=== PATIENT | male | born 1990 | race Hispanic/Latino ===

== ENCOUNTER 2016-09-06 14:21 | Inpatient (IN) | payer MEDICAID, OTHER ==
[~2016-09-06] VITALS: Ht 165.1 cm; Wt 70.0 kg
[2016-09-06 17:40] VITALS: BP 147/103; PULSE 76; RESP 16
--- NOTE | 2016-09-06 18:41 | NUR ---
Nursing Admission Note- Pt arrived to facility via stretcher and EMS staff at 1725. Pt signed all intake paper work. Pt is admitted on a voluntary basis with depression, anger, and thoughts of hurting others. On admission pt is A &Ox3 and appears well kept with flat affect, cooperative to treatment and appears to have good insight to his current mental health . Pt denies any Hx of treatment and denies ever being prescribed any psych meds. Pt stated he has been dealing with depression and having thoughts of harming others since he was 16 yrs old. Pt stated he attempted to seek a counselor in but was not willing to be honest in his therapy sessions and quickly stopped. Pt rated anxiety 3/10, depression 3/10, denied SI and rated HI 1/10 and denied hallucinations. When asked about the thoughts of harming others pt stated" I will get very angry and have thoughts of harming as many people as I can before anyone can take me down". Stated triggers are stress and "rude people". Pt stated he is having increased stress r/t being homeless and his current living situation at the [facility] and states" Im worried if I don't get help Im going to act on my thoughts and end up in penitentiary". Pt stated he was open to taking medications and stated he was more excited to be seeking tx at [facility] than he was apprehensive about being here. Pt denied any medical issues or concerns and stated a Hx of asthma but hasn't used an inhaler in years. Pt appears to have limited support systems and states limited contact with his family because"they stress me out more".
[2016-09-06] MEDS ORDERED: Alum-Mag Hydrox-Simeth 30 mL Suspension PO PRN (19:35)
[2016-09-06] MEDS ORDERED: Magnesium Hydroxide 10 mL Oral Concentration PO PRN (19:35)
[2016-09-06] MEDS ORDERED: Benzocaine-Menthol Lozenge 2/Pkg PO PRN (19:35)
--- NOTE | 2016-09-06 19:47 | NUR ---
Observations 0900 to 0 Pt arrived on the unit at 1725 on stretcher with EMT and security. Pt completed admission process and signed all admission paperwork. Pt was oriented to the unit, shown to room 226 and then came out to dining area to eat dinner. Pt ate 100% of his dinner. Pt affect and mood was calm, friendly and content. Pt speech and eye contact was good. Pt has been polite, pleasant and cooperative when approached by this senior underwriter. Pt took a shower and washed a load of clothes. Pt was observed every 15 minutes throughout the shift as ordered.
[2016-09-06] MEDS: LORazepam 1 mg Tablet PO PRN (20:33)
--- NOTE | 2016-09-06 23:20 | NUR ---
Nursing Note Luz- Pt spent luz in milieu socializing with peer, ate dinner and took PRN ambien 5mg for sleep and lorazepam 1mg for anxiety. Pt appears to be adjusting well to unit and has been cooperative and polite with staff. Q15 min safety checks done per protocol WC sleep, behavior, safety
--- NOTE | 2016-09-07 06:43 | NUR ---
Nursing Noc 11-7 s/o- has appeared to sleep after 0000 during q 15 minute assessments. a- no apparent distress. p- monitor behavior/emotional state, quality, times and amount of sleep, use and effect of medication.
[2016-09-07 10:34] VITALS: BP 123/90; PULSE 80; RESP 16
--- NOTE | 2016-09-07 14:28 | NUR ---
Pt AAOx3, pleasant, calm and cooperative, visible in common area reading after breakfast, attended and participated in groups, limited interaction with peers, wore sun glasses during the shift due to bright sunlight, , pt denies anxiety, denies depressive symptoms and denies A/VH. Does endorse having chronic underlying anger since childhood which is easily triggered. He reported he brought himself to the ED for active thoughts of harming others. Pt denies current thoughts to harm others since being on the on the unit, agrees to remain safe while in the hospital and notify staff if thoughts surface. During conversation pt stated that he has difficulty with social relationships and peterson by creating a "finely tailored human skin" that he hides behind. He explained this is a professional image he assumes by wearing business attire, ties etc. It prevents him from reacting negatively to those who offend him and acts as a control for managing his emotions. " My behavior has to match my image when my skin is on". He reports it also allows him to get his needs met. "People are more willing to give you things and do things for you if you appear respectable. " . Pt has required no prn medications, denies pain, no medical issues reported or observed.
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
--- NOTE | 2016-09-08 06:47 | NUR ---
Sleep Adequate sleep through the night with no noted distress or awakening per protocol checks. Total sleep over 9.5 hours.
[2016-09-08 15:31] VITALS: BP 135/72; PULSE 90
--- NOTE | 2016-09-08 17:51 | NUR ---
Day Shift 7a-7p Pt pleasant, calm and cooperative, fluctuated between common and bed area. Socially awkward, difficulty making social connections and wore his sun glasses all day. Pt see engage in solitary activities, little spontaneous conversation but responded when spoken to. Mood detached, affect constricted. Pt denies intrusive thoughts to harm others, reported his anger has not been triggered today and he has felt safe. Pt denies depressive symptoms, denies SI, HI plan or intent and denies A/VH. Pt started on Prozac today, compliant with medication, med education provided, no prns needed, pt denies pain, no medical issues reported or observed.
--- NOTE | 2016-09-08 18:45 | NUR ---
[facility] Day Shift Pt maintained behavioral control throughout the shift. Pt affect appears bright. Pt spends most of the shift reading/resting in his room, or reading/writing in the dining room. Pt is not overly social with staff and peers when active on the unit, but is pleasant and appropriate with staff and peers when engaged. Pt occasionally appears superficially friendly with staff and peers during interactions. Pt attended community meeting in the AM and participated very lightly in group activities throughout the shift. Pt attended all meals and ate approx 100% of all meals.
--- NOTE | 2016-09-08 19:52 | PCM.PNPSY ---
Subjective Date of Service Sep 08, 2016 Subjective The patient initially reported difficulty using the CBT worksheet as he thought all items had to be serious. He also thought there had to be a physical outcome to the events. The patient was able to complete the worksheets but objectified individuals as "meat." We discussed the need to de-objectify individuals and treat them more as people than objects. He agreed and was more enthusiastic about trying. He reported no side effects from fluoxetine. Sleep: 9-1/2 hours. Appetite: Good Suicidal and homicidal ideation: Denies Auditory hallucinations: Denies Visual hallucinations: Denies Other Psychotic Symptoms: Denies Anxiety: Moderate Depression: Still with existential dilemma Current Medications Current Medications Fluoxetine HCl 10 mg ONCE ONCE PO Last administered on 09/07/16 15:43; Admin Dose 10 MG; Start 09/07/16 at 15:25; Stop 09/07/16 at 15:28; Status DC Fluoxetine HCl 20 mg DAILY PO Last administered on 09/08/16 10:34; Admin Dose 20 MG; Start 09/08/16 at 10:10 Mental Status Exam Vital Signs Vital Signs Date Time Temp Pulse Resp B/P Pulse Ox O2 Delivery O2 Flow Rate FiO2 09/08/16 15:31 90 135/72 Appearance: Neat/well groomed (untrimmed jacob), Other (initially with sunglasses on and took off for interview) Attitude: Pleasant, Cooperative Behavior: No unusual behavior Affect: Well Modulated/Appropriate Mood: Dysthymic, Anxious Thought Process/Associations: Logical/Sequential, Goal Directed Speech Production: Normal Speech Rate: Normal Speech Articulation: Normal Thought Content: Perseveration (obejctification of individuals) Danger to Self/Suicidal Ideati: None Danger to Others: None Hallucinations: Auditory (Denies), Visual (Denies) Consciousness: Alert Orientation: Person, Place, Date, Situation Memory: Grossly Intact Estimate Intellectual Function: Average (to above average) Basis for IQ estimate: Awareness current events, Word use/vocabulary, Educational history, Employment history Attention/Concentration & Cogn: Intact Insight: Good Judgement: Good Mental Health Plan The patient is a 26-year-old male with a 10+ year history of dysphoria related to his interactions with others and how they do not meet his expectations. He also has distress around not meeting what he believes are his expected goals. The patient's homicidality appears to be more of a fantasy with his suicidal ideation resulting if he were to actually harm someone. The patient's symptoms and duration appeared to meet criteria for obsessive compulsive personality disorder. He also appears to have some symptoms consistent with narcissistic personality disorder although it is unclear whether he meets full criteria. He does not appear to meet criteria for obsessive-compulsive disorder or major depressive disorder. As such his symptoms appear to be consistent with a unspecified mood disorder with prominent anxiety and depression. He does not acutely appear to be at risk of harming himself or others. This appears to be related to his existential crisis. His dissociative episodes are likely related to his personality disorder issues. The patient is using his CBT work sheets effectively and appears to be benefiting from the milieu. He is not reporting any side effects from medication. He reports that he would eventually like to go back to the [employer] and use his skills. [place] AXIS I: Unspecified depressive disorder AXIS II: Obsessive-compulsive personality disorder Narcissistic personality traits versus disorder AXIS III: None acute AXIS IV: Homelessness, lack of funding, limited coping skills, lack of social supports. AXIS V: GAF 35 Medications Fluoxetine 20 mg daily Treatments 1. The patient is admitted to the inpatient unit and will be provided a safe and secure environment. 2. The patient is denying current active suicidality or homicidality and is not in need of a one-to-one at this time. He is agreeing to notify us should he have any acute suicidal or homicidal thoughts. 3. The patient is encouraged to participate with group and milieu activities. 4. The patient will be seen by the treatment team on a daily basis to assess symptoms, side effects and response to treatment. 5. Continue fluoxetine 20 mg for treatment of depression. 6. Zolpidem tartrate 5 mg p.o. nightly p.r.n. insomnia. May repeat x1. 7. Hydroxyzine 50 mg every 4 hours as needed for anxiety or agitation 8. Lorazepam 1mg q 4 hrs as needed for anxiety or agitation. 9. Anticipated length of stay is 3-5 days. Joel Simms MD Sep 08, 2016 19:52
--- NOTE | 2016-09-09 02:15 | NUR ---
Nursing Note [id number] Pt up in milieu reading upon arrival to unit. Pt appears superficially bright in conversation and denies depression, anxiety, SI or thoughts of harming other at this time. When asked how he was adjusting to his stay here pt stated" Im feeling much better today and this is so [facility]". Minimal social interaction noted with peers but does engage in conversation when approached. No anger or aggression noted and behavior controlled, cooperative and polite. PRN ambien given to promote sleep. Pt read late into the night and was noted asleep 0145. Q15 min safety checks done per protocol, [facility] sleep, safety, behavior
[2016-09-09 09:15] VITALS: BP 129/73; PULSE 97; RESP 17
--- NOTE | 2016-09-09 17:18 | NUR ---
Nursing Notes [id number] S: "Look at this picture, then close your eyes and try to draw it". "That is great, I want you to sign it and when I get out, I will try to sell it as an abstract on the internet". O: Patient readily engaged with student nurse about a TV show they both like to watch. Animated. Speaks loudly, hyper verbal at times. Continues to wear sunglasses. Tendency to keep occupied in solitary activities (reading a book or newspaper with article help up right in front of face-almost as a barrier) continues. Patient engaging freely/appropriately with an elderly patient on unit. A: Elmer bright at times, willing to engage when approached. Cooperative. P: Monitor for safety and response to treatment. Follow plan of care.
[2016-09-09] MEDS: LORazepam 1 mg Tablet PO PRN ×2 (17:36→21:47)
--- NOTE | 2016-09-09 20:30 | NUR ---
Observations 0900 to 2130 Pt affect and mood was bright when engaged, content and superficial. Pt speech and eye contact was good. Pt attended group and unit activities. Pt attended community meeting and set a daily goal. Pt was social with staff and select peers when approached. Pt attended meals in D.[facility]. and ate 50% of breakfast and 100% of lunch and dinner. Pt maintained behavior throughout the shift. Pt was polite, pleasant and cooperative. Pt was social with peers. Pt worked on some arts and crafts. Pt was observed every 15 minutes throughout the shift as ordered.
--- NOTE | 2016-09-09 21:50 | NUR ---
Nurses PRN Patient requested Ambien 5mg,Vistaril 50mg,Ativan 1mg for anxiety and sleep,hopper operator to assess response.
--- NOTE | 2016-09-09 21:59 | PCM.PNPSY ---
Subjective Date of Service Sep 09, 2016 Subjective The patient did not complete CBT worksheets, but stated would work on it this evening. He reports that he feels "better than normal... no irritation with anyone. Rudeness/inconsideration didn't bother me. Reports cannibalism fantasies are more about the transformation process... making undesirable people into something desirable. He reports he would never act on these thoughts as they are socially unacceptable. He reported no side effects from fluoxetine. Sleep: 4.25+ hours "too much sugar." Appetite: Real good Suicidal and homicidal ideation: Denies Auditory hallucinations: Denies Visual hallucinations: Denies Other Psychotic Symptoms: Denies Anxiety: 0/10 Depression: 0/10 but still with existential dilemma Current Medications Current Medications Fluoxetine HCl 20 mg DAILY PO Last administered on 09/09/16t 08:32; Admin Dose 20 MG; Start 09/08/16 at 10:10 Mental Status Exam Appearance: Neat/well groomed (untrimmed jacob), Other (initially with sunglasses on and took off for interview) Attitude: Pleasant, Cooperative Behavior: No unusual behavior Affect: Well Modulated/Appropriate Mood: Euthymic, Anxious Thought Process/Associations: Logical/Sequential, Goal Directed Speech Production: Normal Speech Rate: Normal Speech Articulation: Normal Thought Content: Perseveration (obejctification of individuals) Danger to Self/Suicidal Ideati: None Danger to Others: None Hallucinations: Auditory (Denies), Visual (Denies) Consciousness: Alert Orientation: Person, Place, Date, Situation Memory: Grossly Intact Estimate Intellectual Function: Average (to above average) Basis for IQ estimate: Awareness current events, Word use/vocabulary, Educational history, Employment history Attention/Concentration & Cogn: Intact Insight: Good Judgement: Good Mental Health Plan The patient is a 26-year-old male with a 10+ year history of dysphoria related to his interactions with others and how they do not meet his expectations. He also has distress around not meeting what he believes are his expected goals. The patient's homicidality appears to be more of a fantasy with his suicidal ideation resulting if he were to actually harm someone. The patient's symptoms and duration appeared to meet criteria for obsessive compulsive personality disorder. He also appears to have some symptoms consistent with narcissistic personality disorder although it is unclear whether he meets full criteria. He does not appear to meet criteria for obsessive-compulsive disorder or major depressive disorder. As such his symptoms appear to be consistent with a unspecified mood disorder with prominent anxiety and depression. He does not acutely appear to be at risk of harming himself or others. This appears to be related to his existential crisis. His dissociative episodes are likely related to his personality disorder issues. The patient is using his CBT work sheets effectively and appears to be benefiting from the milieu. He is not reporting any side effects from medication. He reports that he would eventually like to go back to the [facility] and use his skills. [place] AXIS I: Unspecified depressive disorder AXIS II: Obsessive-compulsive personality disorder Narcissistic personality traits versus disorder AXIS III: None acute AXIS IV: Homelessness, lack of funding, limited coping skills, lack of social supports. AXIS V: GAF 35 Medications Fluoxetine 20 mg daily Treatments 1. The patient is admitted to the inpatient unit and will be provided a safe and secure environment. 2. The patient is denying current active suicidality or homicidality and is not in need of a one-to-one at this time. He is agreeing to notify us should he have any acute suicidal or homicidal thoughts. 3. The patient is encouraged to participate with group and milieu activities. 4. The patient will be seen by the treatment team on a daily basis to assess symptoms, side effects and response to treatment. 5. Continue fluoxetine 20 mg for treatment of depression. 6. Zolpidem tartrate 5 mg p.o. nightly p.r.n. insomnia. May repeat x1. 7. Hydroxyzine 50 mg every 4 hours as needed for anxiety or agitation 8. Lorazepam 1mg q 4 hrs as needed for anxiety or agitation. 9. Anticipated length of stay is 3-5 days. Joel Simms MD Sep 09, 2016 21:59
--- NOTE | 2016-09-10 05:34 | NUR ---
nursing, nights, 11-7 s- i'm done with these headphones. thanks. o- up at start of shift. has appeared to sleep after 0015. assessed q 15 minutes. a- restless, medication helpful, no apparent distress. p- monitor behavior/emotional state, quality, times and amount of sleep, use and effect of medication. nikki
--- NOTE | 2016-09-10 10:37 | NUR ---
Nursing Day Shift- S- "I'm feeling pretty anxious. No depression, I haven't had that since I got here. Anxiety and anger mostly." O- Pt. had slept 6 plus hours per report. He was awake for breakfast and eat well. He appeared pleasant with staff and peers. He reported anxiety at 1030 of 5/10, denied depression, and rated anger at 2/10. Vistaril 50 mg was given at that time. A- Anxiety. Fantasies of cannibalism per report. P- Pt. to inform staff if Vistaril effective. Cont. BHTP
--- NOTE | 2016-09-10 17:47 | NUR ---
[facility] Day Shift Pt maintained behavioral control throughout the shift. Pt affect appears bright. Pt spends most of the shift reading/resting in his room, or reading/writing in the dining room. Pt appears more social/friendly with staff and peers compared to previous shifts. Pt spends some of the shift preparing for eventual DC. Pt attended community meeting in the AM and participated in group activities throughout the shift. Pt attended all meals and ate approx 100% of all meals.
--- NOTE | 2016-09-10 20:04 | PCM.PNPSY ---
Subjective Date of Service Sep 10, 2016 Subjective The patient completed multiple CBT worksheets and reported that he found them helpful. He also stated that an individual with the same first name and come into his room and he felt that she reacted in a much more positive way and was much less aggressive internally. He reported that he did not have any of the "transformational" fantasies regarding this individual. He reports that he feels "more energized and more willing to do things" and attributes this to the fluoxetine. He reported no side effects from fluoxetine. The patient believes he may be ready to return to the [facility] tomorrow. Sleep: 5.25+ hours Appetite: good Suicidal and homicidal ideation: Denies Auditory hallucinations: Denies Visual hallucinations: Denies Other Psychotic Symptoms: Denies Anxiety: 0/10 Depression: 0/10 Mental Status Exam Appearance: Neat/well groomed (untrimmed jacob), Other (initially with sunglasses on and took off for interview) Attitude: Pleasant, Cooperative Behavior: No unusual behavior Affect: Well Modulated/Appropriate Mood: Euthymic, Anxious Thought Process/Associations: Logical/Sequential, Goal Directed Speech Production: Normal Speech Rate: Normal Speech Articulation: Normal Thought Content: Appropriate Danger to Self/Suicidal Ideati: None Danger to Others: None Hallucinations: Auditory (Denies), Visual (Denies) Consciousness: Alert Orientation: Person, Place, Date, Situation Memory: Grossly Intact Estimate Intellectual Function: Average (to above average) Basis for IQ estimate: Awareness current events, Word use/vocabulary, Educational history, Employment history Attention/Concentration & Cogn: Intact Insight: Good Judgement: Good Mental Health Plan The patient is a 26-year-old male with a 10+ year history of dysphoria related to his interactions with others and how they do not meet his expectations. He also has distress around not meeting what he believes are his expected goals. The patient's homicidality appears to be more of a fantasy with his suicidal ideation resulting if he were to actually harm someone. The patient's symptoms and duration appeared to meet criteria for obsessive compulsive personality disorder. He also appears to have some symptoms consistent with narcissistic personality disorder although it is unclear whether he meets full criteria. He does not appear to meet criteria for obsessive-compulsive disorder or major depressive disorder. As such his symptoms appear to be consistent with a unspecified mood disorder with prominent anxiety and depression. He does not acutely appear to be at risk of harming himself or others. This appears to be related to his existential crisis. His dissociative episodes are likely related to his personality disorder issues. The patient is using his CBT work sheets effectively and appears to be benefiting from the milieu. He is not reporting any side effects from medication. The patient feels that he may be ready for the [facility] tomorrow. [place] AXIS I: Unspecified depressive disorder AXIS II: Obsessive-compulsive personality disorder Narcissistic personality traits versus disorder AXIS III: None acute AXIS IV: Homelessness, lack of funding, limited coping skills, lack of social supports. AXIS V: GAF 35 Medications Fluoxetine 20 mg daily Treatments 1. The patient is admitted to the inpatient unit and will be provided a safe and secure environment. 2. The patient is denying current active suicidality or homicidality and is not in need of a one-to-one at this time. He is agreeing to notify us should he have any acute suicidal or homicidal thoughts. 3. The patient is encouraged to participate with group and milieu activities. 4. The patient will be seen by the treatment team on a daily basis to assess symptoms, side effects and response to treatment. The treatment team has been working with the patient on CBT worksheets and coping skills. 5. Continue fluoxetine 20 mg for treatment of depression. 6. Zolpidem tartrate 5 mg p.o. nightly p.r.n. insomnia. May repeat x1. 7. Hydroxyzine 50 mg every 4 hours as needed for anxiety or agitation 8. Lorazepam 1mg q 4 hrs as needed for anxiety or agitation. 9. Anticipated length of stay is 3-5 days. Joel Simms MD Sep 10, 2016 20:04
--- NOTE | 2016-09-10 22:17 | NUR ---
NURSING NOTE [id number] Mood= "good, good" Affect= smiling, joking, calm Behavior= pt. very visible and social on unit. He spent first part of shift in the rec room playing Wii w/his peers. Socialized later in the dining room w/them and watched movies. He continues to wear his sunglasses out in the milieu. Thought processes= linear, denies SI/HI/AH/VH or any disturbed thought processes
[2016-09-10] MEDS: LORazepam 1 mg Tablet PO PRN (23:00)
--- NOTE | 2016-09-11 04:09 | NUR ---
Observations from [id number] Pt has been found masturbating 3 times when doing checks.
--- NOTE | 2016-09-11 06:26 | NUR ---
Nursing Note Noc Pt in room upon arrival to unit. Pt given PRN's to promote sleep. Sleep time noted 0215 with 4 hr uninterrupted sleep. Q15 min safety checks done per protocol, no distress noted pt currently asleep. WCTM sleep, behavior, safety
--- NOTE | 2016-09-11 09:27 | PCM.DIMED ---
Discharge Instructions Date of Service Sep 11, 2016 Dates of Hospitalization Sep 06, 2016 at 17:18 Discharge Diagnosis Discharge Diagnosis AXIS I: Unspecified depressive disorder AXIS II: Obsessive-compulsive personality disorder AXIS III: None acute AXIS IV: Homelessness, lack of funding, limited coping skills, lack of social supports. AXIS V: GAF 50 Diet No restrictions Activity No restrictions Patient Instructions Should you have any thoughts of harming yourself or others, please call the crisis line, your provider, 911, or go to the nearest Emergency Department. Do not change or discontinue your medications without discussing with your provider. You have been given a prescription for 30 days supply of your medication Follow-up plan Mental Health follow-up Walk-in appointment on 09/13/16 @ 12:30pm [id number] [place] [address] Joel Simms MD Sep 11, 2016 09:27
[2016-09-11] MEDS ORDERED: HYDR50CA3 PO (09:29)
[2016-09-11] MEDS ORDERED: ZLP5T PO (09:29)
[2016-09-11] MEDS ORDERED: FLUO20CA25 PO (09:29)
--- NOTE | 2016-09-11 13:04 | NUR ---
Nursing Discharge- Pt. discharged to the [facility] by cab and bus at 1030 today. His medications were faxed to [facility] as he had requested. Pt. expressed an understanding of the discharge and follow up medications and plans. He denied depression, anxiety, auditory or visual hallucinations. All his belongings were returned.
--- NOTE | 2016-09-11 14:01 | NUR ---
Associate Professor Of Psychology/Counselor: S: "I handled the situation in here last night and it was not too hard." O: Patient slept 7+ hours last night as per staff. He denies S/I and H/I. He denies auditory and visual hallucinations. Depression is 0/10 and anxiety is 0/10. Out-patient appointment: [facility], [facility], [place], 09/13/16 at 12:30pm. A: Patient is cooperative, hopeful, pleasant, future oriented. P: Follow care plan, coordinate out-patient providers.
[2016-09-11 17:11] VITALS: BP 148/97; PULSE 97; RESP 16
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
== END 2016-09-11 10:30 | disposition home or self-care (01) | DRG 881 ==
LOC: MHC 17:18
PROVIDERS: ADMIT Psychiatry & Neurology Psychiatry; ATTEND Psychiatry & Neurology Psychiatry
DX: F32.9 Major depressive disorder, single episode, unspecified (principal); F60.5 Obsessive-compulsive personality disorder; Z59.0 Homelessness